=== PATIENT | male | born 1955 | race Caucasian/White ===

== ENCOUNTER → 2020-10-25 13:38 | Outpatient (BNVA) | payer OTHER, SELFPAY | PROVIDERS: PCP Internal Medicine; Visit Provider Urology ==

== ENCOUNTER → 2022-06-21 09:58 | Outpatient (BNVA) | payer OTHER, SELFPAY | PROVIDERS: PCP Physician Assistant Medical; Visit Provider Urology | DX: N40.1 Benign prostatic hyperplasia with lower urinary tract symptoms (principal); R97.20 Elevated prostate specific antigen [PSA] | CPT/HCPCS: 99212 ==

== ENCOUNTER 2023-03-07 13:52 | Outpatient (AMB) | payer MEDICARE, SELFPAY ==
--- NOTE | 2023-03-07 14:03 | HO.NEPHOV ---
HPI HPI Comments History of Present Illness Details 67-year-old man with a history of chronic alcohol abuse leading to alcoholic cirrhosis who has had recurrent paracentesis. He has chronic disease with a baseline creatinine of around 1.8-2.0 mg/dL. He is being evaluated [facility] for liver transplantation. He was on metformin for diabetes which was discontinued. The past he used to take Celebrex which she does not take anymore. He is still on spironolactone 100 mg which is able to tolerate well. He also takes midodrine for hypotension. He has had no recent lightheadedness. He quit alcohol intake in June 2021 [facility] Medical History (Updated 03/07/23 @ 14:28 by Raj Da Silva MD) Diabetes mellitus Surgical History [place] teeth extracted History of tonsillectomy and adenoidectomy Total knee replacement status Social History Patient Tobacco Use Status: Never used Tobacco Current occupational status: employed Current occupational exposures/hazards: No Vital Signs 03/07/23 14:06 Height 5 ft 9 in Weight 213 lb 2 oz BMI 31.5 BP 114/60 Blood Pressure Location Rt brachial Position Sitting Pulse 86 Pulse Source Pulse Oximeter Pulse Oximetry (%) 96 Oxygen Delivery Method Room Air Physical Exam Vital Signs: Last Vital Signs Pulse 86 03/07/23 14:06 BP 114/60 03/07/23 14:06 Pulse Ox 96 03/07/23 14:06 Oxygen Delivery Method Room Air 03/07/23 14:06 BMI result Body Mass Index 31.5 Const General: comfortable Nutritional Appearance: well nourished Orientation/consciousness: patient oriented x3 HEENT Head: No normal to inspection Mouth: moist mucous membranes Neck Neck: Yes supple and Yes no JVD Resp Auscultation: clear to auscultation bilaterally, no rales and rub present Cardio Jugular venous distension: no JVD Palpation: no palpable S3 and no palpable S4 Heart sounds: no rubs GI Palpation (GI): Soft to palpation and nontender Percussion: No Fluid wave present General: Yes no CVA tenderness Back/Spine/Pelvis Back: no CVA tenderness Skin General skin exam: no rashes or lesions noted Neuro General: patient oriented x3 Extrem General: Yes no pedal edema and No clubbing Assessment & Plan Assessment & Plan (1) Diabetes mellitus: Code(s): E11.9 - Type 2 diabetes mellitus without complications (2) CKD (chronic kidney disease) stage 3, GFR 30-59 ml/min: Code(s): N18.30 - Chronic kidney disease, stage 3 unspecified (3) Hyponatremia: Code(s): E87.1 - Hypo-osmolality and hyponatremia (4) Cirrhosis, alcoholic: Code(s): K70.30 - Alcoholic cirrhosis of liver without ascites Plan Middle-aged man with stage III CKD in a setting of alcoholic cirrhosis. Renal function has been stable thus far. Goal is to slow the portion renal disease. Continue overt nephrotoxins including NSAIDs. Need to repeat renal panel ordered. History of hyponatremia due to decreased free water clearance in the setting of cirrhosis. Repeat place have been ordered. History of cirrhosis of liver is being followed at [facility]. History of hypertension and continue with some midodrine. Maintain systolic blood pressure above 90 mm of mercury. Orders: Orders Blood Urea Nitrogen 1 Week E11.9 - Type 2 diabetes mellitus without complications Calcium 1 Week E11.9 - Type 2 diabetes mellitus without complications Total Protein Urine Random 1 Week E11.9 - Type 2 diabetes mellitus without complications Electrolytes 1 Week E11.9 - Type 2 diabetes mellitus without complications Creatinine 1 Week E11.9 - Type 2 diabetes mellitus without complications Creatinine Urine 1 Week E11.9 - Type 2 diabetes mellitus without complications Hemoglobin A1c 1 Week E11.9 - Type 2 diabetes mellitus without complications Coding Level of Care Code Est Pt Level 3 (97776) Diagnoses Diabetes mellitus E11.9 CKD (chronic kidney disease) stage 3, GFR 30-59 ml/min N18.30 Hyponatremia E87.1 Cirrhosis, alcoholic K70.30 Results Reviewed Results Reviewed: Lab results are pending Nephrology Results: No Data to Display
[2023-03-07 14:06] VITALS: BP 114/60; PULSE 86; O2SAT 96; BMI 31.5
== END 2023-03-07 14:26 | disposition home or self-care (01) ==
PROVIDERS: PCP Physician Assistant Medical; Visit Provider Internal Medicine Hypertension Specialist
DX: E11.9 Type 2 diabetes mellitus without complications (principal); N18.30 Chronic kidney disease, stage 3 unspecified; E87.1 Hypo-osmolality and hyponatremia; K70.30 Alcoholic cirrhosis of liver without ascites
CPT/HCPCS: 99213

== ENCOUNTER → 2023-03-07 13:52 | Outpatient (BNVA) | payer MEDICARE, SELFPAY | PROVIDERS: PCP Physician Assistant Medical; Visit Provider Internal Medicine Hypertension Specialist | DX: E11.22 Type 2 diabetes mellitus with diabetic chronic kidney disease (principal); N18.30 Chronic kidney disease, stage 3 unspecified; E87.1 Hypo-osmolality and hyponatremia; K70.30 Alcoholic cirrhosis of liver without ascites | CPT/HCPCS: 99212 ==

== ENCOUNTER 2023-06-13 09:06 | Outpatient (REF) | payer MEDICARE, SELFPAY ==
[2023-06-13 11:42] LABS: Prostate Specific Antigen 6.83 ng/mL (<0.05-4.0)
== END 2023-06-13 09:07 | disposition home or self-care (01) ==
LOC: HO.10HDL 09:06
PROVIDERS: Visit Provider Urology
DX: Z12.5 Encounter for screening for malignant neoplasm of prostate (principal); R97.20 Elevated prostate specific antigen [PSA]
CPT/HCPCS: 36415; 84153

== ENCOUNTER → 2023-06-18 08:42 | Outpatient (BNVA) | payer MEDICARE, SELFPAY | PROVIDERS: PCP Physician Assistant Medical; Visit Provider Urology | DX: R97.20 Elevated prostate specific antigen [PSA] (principal); N40.1 Benign prostatic hyperplasia with lower urinary tract symptoms | CPT/HCPCS: 51798; 99212 ==

== ENCOUNTER 2023-06-18 08:43 | Outpatient (AMB) | payer MEDICARE, SELFPAY ==
--- NOTE | 2023-06-18 08:43 | A.OFFVIS_ITS ---
Intake Intake Visit Reasons: 1Y PSA(set)Confirmed Intake Note: Patient is Present for Follow Up Urology Medication: None Antibiotic Allergies:None Blood Thinners:None Pharmacy: [facility] PVR:0 Allergies Bpcwtzj-NIY-QuM Reductase Inhibitor [Wvnbveu-Oez-Wma Reductase Inhibitor] Allergy (Verified 03/07/23 14:08) blurred vision /muscle cramps HPI HPI Comments History of Present Illness Details Eric is a pleasant male. He is a patient of Dr. Powell. He is seen for the following urologic conditions. - elevated PSA PSA elevated to 6.8 Had come off finasteride No longer on liver transplant list Is interested in restarting finasteride Given option of biopsy Four month follow-up PSA Elevated PSA PSA 09/05 5.0, 06/07 2.5, 06/08 6.8 Urinary symptoms minimal. Effective emptying. Reasonable stream. No family history of prostate issues Discussion regarding use of finasteride versus prostate biopsy DIYA large prostate no nodules PFSH Medical History (Updated 03/07/23 @ 14:28 by Raj Da Silva MD) Diabetes mellitus Surgical History [place] teeth extracted History of tonsillectomy and adenoidectomy Total knee replacement status Social History Patient Tobacco Use Status: Never used Tobacco Current occupational status: employed Current occupational exposures/hazards: No Review of Systems Const Denies chills and Denies fever(s) Card Reports no additional complaints and Denies syncope Resp Denies cough GI Denies abdominal pain and Denies heartburn Reports as per HPI and Denies change in libido Neuro Denies syncope Psych Denies change in libido Endo Denies change in libido Physical Exam Const General: cooperative, healthy appearing, comfortable and no acute distress Orientation/consciousness: patient oriented x3 HEENT Face and sinus: Yes normal facial exam Mouth: moist mucous membranes Neck Neck: Yes normal visual inspection, Yes full ROM and Yes trachea midline Chest Chest palpation & inspection: normal inspection of the chest Resp Effort & Inspection: normal respiratory effort, able to speak in complete sentences and no respiratory distress GI Inspection: Yes normal to inspection Rectal Exam - Male: Yes normal sphincter tone and Yes prostate normal Male General Exam: Yes normal external exam Penis: normal penis and circumcised Meatus: meatus normal Scrotum: scrotum normal Testes: Testes normal Back/Spine/Pelvis Cervical Spine: normal cervical lordosis Thoracic/Lumbar Spine: thoracic and lumbar spine normal to inspection Skin General skin exam: no rashes or lesions noted Neuro General: patient oriented x3, gait normal, tone normal and moves all extremities Extrem General: Yes normal to inspection and Yes capillary refill normal Office Procedures Post Void Residual Post Residual Void Post Void Residual (PVR): 0 [id number] Void Residual by ultrasound Assessment & Plan Assessment & Plan (1) Elevated PSA: Code(s): R97.20 - Elevated prostate specific antigen [PSA] (2) BPH loc w urin obs/LUTS: Code(s): N40.1 - Benign prostatic hyperplasia with lower urinary tract symptoms Plan Four month follow-up PSA Orders: Orders Prostate Specific Antigen 06/13/23 R97.20 - Elevated prostate specific antigen [PSA] AMB Post Void Residual by ultrasound Today N40.1 - Benign prostatic hyperplasia with lower urinary tract symptoms PSA,Total (Free>4and<10) 4 Months R97.20 - Elevated prostate specific antigen [PSA] Patient Instructions: Imaging studies, laboratory and physical exam results were discussed and reviewed in detail. No major barriers to patient understanding were identified. An opportunity to ask questions regarding the treatment plan was provided. All questions were answered. The patient expressed understanding and agreement with the above treatment plan. The patient is aware they should contact our office by phone for worsening of their current condition or the appearance of new urologic symptoms. Compliance is encouraged with any medications and followup testing that is ordered. It is a privilege to participate in the urologic care of your patient. If you have any questions or concerns regarding treatment for the above conditions, or other urologic issues, please do not hesitate to contact me. The office telephone contact is [phone]. This note is constructed using voice recognition software. While every effort has been made to ensure accuracy manager packaging errors may have been included. Yours sincerely, Dr Garrison Sosa MD, BEE [facility] - Urology Providers of Expert, Compassionate Care for the Genitourinary System Coding Level of Care Code Est Pt Level 4 (70616) Diagnoses Elevated PSA R97.20 BPH loc w urin obs/LUTS N40.1 CPT Codes Post Residual Void - PVR CPT Code: 20274-[place] Void Residual by ultrasound ([id number])
== END 2023-06-18 08:59 | disposition home or self-care (01) ==
PROVIDERS: PCP Physician Assistant Medical; Visit Provider Urology
DX: R97.20 Elevated prostate specific antigen [PSA] (principal); N40.1 Benign prostatic hyperplasia with lower urinary tract symptoms
CPT/HCPCS: 99214

== ENCOUNTER 2023-09-09 10:15 | Outpatient (AMB) | payer MEDICARE, SELFPAY ==
[2023-09-09 10:21] VITALS: BP 130/70; PULSE 95; O2SAT 95; BMI 32.6
--- NOTE | 2023-09-09 10:21 | HO.NEPHOV_ITS ---
Vital Signs 09/09/23 10:21 Height 5 ft 9 in Weight 221 lb BMI 32.6 BP 130/70 Blood Pressure Location Rt brachial Position Sitting Pulse 95 Pulse Source Pulse Oximeter Pulse Oximetry (%) 95 Oxygen Delivery Method Room Air Intake Visit Reasons: 6 month fu/ Conf [employer] Required: No Accompanied by: Self / Same As Patient Allergies Uwnwudk-JJM-CbP Reductase Inhibitor [Cnxypag-Fkf-Xqh Reductase Inhibitor] Allergy (Verified 09/09/23 10:24) blurred vision /muscle cramps Medication List - Last Reconciled 09/09/23 by Raj Da Silva MD acamprosate 333 mg PO TID folic acid 1 mg PO DAILY furosemide 40 mg PO DAILY levothyroxine 100 mcg PO DAILY mirtazapine 15 mg PO BEDTIME thiamine HCl (vitamin B1) 100 mg PO DAILY trazodone 50 mg PO BEDTIME PRN HPI Comments Details: 67-year-old man with a history of chronic alcohol abuse leading to alcoholic cirrhosis who has had recurrent paracentesis. He has chronic disease with a baseline creatinine of around 1.8-2.0 mg/dL. He is being evaluated [facility] for liver transplantation. He was on metformin for diabetes which was discontinued. The past he used to take Celebrex which she does not take anymore. He is still on spironolactone 100 mg which is able to tolerate well. He also takes midodrine for hypotension. He has had no recent lightheadedness. He quit alcohol intake in June 2021 09/09/2023. Overall aysha is doing well. Blood pressure is elevated and midodrine was discontinued. No urinary symptoms. [facility] Medical History (Updated 03/07/23 @ 14:28 by Raj Da Silva MD) Diabetes mellitus Surgical History [place] teeth extracted History of tonsillectomy and adenoidectomy Total knee replacement status Social History Patient Tobacco Use Status: Never used Tobacco Current occupational status: employed Current occupational exposures/hazards: No Review of Systems Const Reports as per HPI, Denies anorexia, Denies fatigue, Denies fever(s) and Denies headache(s) Eyes Denies blurry vision ENT Denies headache(s) Card Denies chest pain, Denies pedal edema and Denies dyspnea Resp Denies cough, Denies hemoptysis and Denies dyspnea GI Denies diarrhea, Denies nausea and Denies vomiting Denies hematuria, Denies urinary frequency and Denies urinary hesitancy Neuro Denies confusion, Denies headache(s) and Denies focal weakness Psych Denies confusion Endo Denies cold intolerance, Denies fatigue and Denies polyuria Physical Exam Vital Signs: Last Vital Signs Pulse 95 09/09/23 10:21 BP 130/70 09/09/23 10:21 Pulse Ox 95 09/09/23 10:21 Oxygen Delivery Method Room Air 09/09/23 10:21 BMI result Body Mass Index 32.6 Const General: No confusion Orientation/consciousness: No confusion Eyes General: appearance normal, both eyes and all related structures Visual Gar: normal visual gar by confrontation Neck Neck: Yes supple and Yes no JVD Resp Effort & Inspection: normal respiratory effort and respiratory effort not decreased Auscultation: rhonchi Cardio Palpation: no palpable S3 and no palpable S4 Heart sounds: no rubs GI Inspection: Yes normal to inspection Palpation (GI): Soft to palpation Percussion: Yes normal to percussion Auscultation: normal bowel sounds General: Yes no CVA tenderness Back/Spine/Pelvis Back: no CVA tenderness Skin General skin exam: no petechiae and no purpura Neuro General: No confusion Extrem General: No clubbing and No edema Results Reviewed Nephrology Results: No Data to Display Assessment & Plan Assessment & Plan (1) Hyponatremia: Code(s): E87.1 - Hypo-osmolality and hyponatremia Category: Medical (2) Cirrhosis, alcoholic: Code(s): K70.30 - Alcoholic cirrhosis of liver without ascites Category: Medical (3) CKD (chronic kidney disease) stage 3, GFR 30-59 ml/min: Code(s): N18.30 - Chronic kidney disease, stage 3 unspecified Category: Medical Plan Middle-aged man with stage III CKD in a setting of alcoholic cirrhosis. Renal function has been stable thus far. Recent creatinine was 1.4 mg/dL. Goal is to slow the portion renal disease. Continue overt nephrotoxins including NSAIDs. History of hyponatremia due to decreased free water clearance in the setting of cirrhosis. \ Repeat serum sodium has been in the normal range. History of cirrhosis of liver Was being followed at [facility]. Currently not being followed by Jay he due to insurance issues Needs to have GI follow up Blood pressure is acceptable at this time. No need for midodrine. Fluid status is optimal. Encouraged to stand low-sodium diet. Orders: Orders Total Protein Urine Random 6 Weeks N18.30 - Chronic kidney disease, stage 3 unspecified UA and rflx microscopic 6 Weeks N18.30 - Chronic kidney disease, stage 3 unspecified Basic Metabolic Panel 6 Weeks N18.30 - Chronic kidney disease, stage 3 unspecified Creatinine Urine 6 Weeks N18.30 - Chronic kidney disease, stage 3 unspecified Hemoglobin A1c 6 Weeks N18.30 - Chronic kidney disease, stage 3 unspecified Coding Level of Care Code Est Pt Level 4 (80045) Diagnoses Hyponatremia E87.1 Cirrhosis, alcoholic K70.30 CKD (chronic kidney disease) stage 3, GFR 30-59 ml/min N18.30
== END 2023-09-09 10:41 | disposition home or self-care (01) ==
PROVIDERS: PCP Physician Assistant Medical; Visit Provider Internal Medicine Hypertension Specialist
DX: E87.1 Hypo-osmolality and hyponatremia (principal); K70.30 Alcoholic cirrhosis of liver without ascites; N18.30 Chronic kidney disease, stage 3 unspecified
CPT/HCPCS: 99214

== ENCOUNTER → 2023-09-09 10:15 | Outpatient (BNVA) | payer MEDICARE, SELFPAY | PROVIDERS: PCP Physician Assistant Medical; Visit Provider Internal Medicine Hypertension Specialist | DX: E87.1 Hypo-osmolality and hyponatremia (principal); K70.30 Alcoholic cirrhosis of liver without ascites; N18.30 Chronic kidney disease, stage 3 unspecified | CPT/HCPCS: 99212 ==